=== PATIENT | male | born 2000 | race Caucasian/White ===

== ENCOUNTER 2019-01-18 19:12 | Emergency (ER) | payer BC ==
[2019-01-18 21:00] VITALS: BP 140/94; PULSE 100; RESP 18; TEMP 98.6; O2SAT 100
== END 2019-01-18 20:27 | disposition home or self-care (01) ==
LOC: ED 19:12
DX: H10.021 Other mucopurulent conjunctivitis, right eye (principal)
CPT/HCPCS: 99282

== ENCOUNTER 2019-01-20 15:09 | Emergency (ER) | payer SELFPAY ==
[2019-01-20 16:44] VITALS: BP 139/87; PULSE 105; RESP 16; TEMP 97.6; O2SAT 99
== END 2019-01-20 16:23 | disposition home or self-care (01) | DRG 125 ==
LOC: ED 15:09
DX: H10.022 Other mucopurulent conjunctivitis, left eye (principal)
CPT/HCPCS: 99282